=== PATIENT | female | born 1945 | race Two or more races ===

== ENCOUNTER 2019-05-05 14:59 | Outpatient (CLI) | payer OTHER ==
[2019-05-08] MEDS ORDERED: MAVIK PO (16:14)
[2019-05-08] MEDS ORDERED: LIPITO PO (16:15)
== END 2019-05-05 15:00 | disposition home or self-care (01) ==
LOC: LAB 14:59
DX: I10 Essential (primary) hypertension (principal); C78.7 Secondary malignant neoplasm of liver and intrahepatic bile duct; C18.6 Malignant neoplasm of descending colon

== ENCOUNTER 2019-05-09 06:30 | Day surgery (SDC) | payer OTHER ==
[~2019-05-09 06:30] MED LIST: LIPITO PO; MAVIK PO
[2019-05-09] MEDS ORDERED: PERCOCET 5-3251 EACH PO (11:02)
== END 2019-05-09 13:50 | disposition home or self-care (01) ==
LOC: CIR.AMB 06:30
DX: C18.6 Malignant neoplasm of descending colon (principal); C78.7 Secondary malignant neoplasm of liver and intrahepatic bile duct
CPT/HCPCS: 36561; C1751